=== PATIENT | male | born 1975 | race Two or more races ===

== ENCOUNTER → 2025-02-19 | Outpatient (CLI) | payer BC ==
[2025-02-19 10:49] LABS: Hematocrit 51.5 % (41.0-53.0); Hemoglobin 18.0 g/dL (13.5-17.5); Mean Corpuscular Hemoglobin 31.1 pg (28.0-32.0); Mean Corpuscular Volume 88.9 fL (80.0-100.0); Nucleated Red Blood Cells % 0.1 %
[2025-02-19 11:20] LABS: Alkaline Phosphatase 112 U/L (46-116); Anion Gap 7 (5-15); BUN/Creatinine Ratio 6.7 (10.0-20.0); Calcium 9.6 mg/dL (8.7-10.4); Carbon Dioxide 28 mmol/L (20-31); Chloride 106 mmol/L (98-107); Glucose 89 mg/dL (74-106); Potassium 4.0 mmol/L (3.5-5.1); Sodium 141 mmol/L (136-145); Total Protein 7.6 g/dL (5.7-8.2); Triglycerides 135 mg/dL (< 150)
[2025-02-19 11:21] LABS: Bilirubin, Total 0.9 mg/dL (0.2-1.0); HDL Cholesterol 52 mg/dL (40-59)
[2025-02-19 11:23] LABS: Alanine Aminotransferase 47 U/L (7-40); Albumin 4.8 g/dL (3.2-4.8); Blood Urea Nitrogen 8 mg/dL (9-23); Cholesterol 237 mg/dL (< 200)
== END | disposition home or self-care (01) ==
LOC: LAB 10:28
PROVIDERS: ATTEND Nurse Practitioner Family
DX: I10 Essential (primary) hypertension (principal); Z00.01 Encounter for general adult medical examination with abnormal findings
CPT/HCPCS: 36415; 80053; 80061; 84443; 85025